=== PATIENT | male | born 1965 | race Caucasian/White ===

== ENCOUNTER 2016-10-22 18:30 | Emergency (ER) | payer SELFPAY ==
[~2016-10-22] VITALS: Ht 160 cm; Wt 65.0 kg
[2016-10-22] MEDS ORDERED: SODIUM CHLORIDE FLUSH 10ML SYR IVF ONE (19:00)
[2016-10-22] MEDS ORDERED: CEFTRIAXONE PMX 1GM/50ML 50 ML IVPB ONE (19:00)
[2016-10-22 19:22] LABS: BLOOD UREA NITROGEN 3 mg/dL (7-18)
[2016-10-22] MEDS ORDERED: CEFTRIAXONE PMX 1GM/50ML 50 ML ONE (19:27)
[2016-10-22] MEDS ORDERED: POTASSIUM CHLORIDE 20 MEQ TAB.ER.PRT PO ONE (20:00)
[2016-10-22] MEDS ORDERED: POTASSIUM CHLORIDE 20 MEQ TAB.ER.PRT ONE (20:23)
== END 2016-10-22 21:24 | disposition home or self-care (01) ==
LOC: ED 19:18
DX: L03.116 Cellulitis of left lower limb (principal); L03.113 Cellulitis of right upper limb; E87.6 Hypokalemia
CPT/HCPCS: 36415; 80048; 82040; 83605; 85025; 87040; 96365; 99284; J0696